=== PATIENT | male | born 1940 | race Caucasian/White ===

== ENCOUNTER 2016-08-20 10:10 | Outpatient (CLI) | payer MEDICARE, OTHER ==
--- NOTE | 2016-08-20 11:49 | Diagnostic Imaging Report ---
[facility] [address] [facility].[address] [address] Report Submission Date: Aug 20, 2016 11:45:10 AM CDT Patient Study Name: RICHY MURILLO Date: Aug 20, 2016 10:34:47 AM CDT Modality Type: MR Gender: M Description: MRI L SPINE W/O CONTRAST : 44 Institution: [facility] Physician: KING ENAMORADO MRI lumbar spine without contrast Clinical history: Severe low back pain Technique: Multiplanar multisequence MR imaging was performed through the lumbar spine. Findings: There is a Tt1 and compression fracture retropulsion. There is mild loss of vertebral body height. There is bone marrow edema throughout the vertebral body compatible acute/subacute compression fracture. No other compression fractures identified. Alignment of the lumbar spine is normal. There is heterogeneous marrow signal without a geographic marrow lesion. The conus medullaris terminates at L1 and is unremarkable. T2-L1: There is no significant disc bulge, central spinal or neural foraminal stenosis. L1-L2: There is a mild disc bulge without central spinal or neural foraminal stenosis. L2-L3: There is a mild disc bulge without central spinal or neural foraminal stenosis. L3-L4: There is a mild disc bulge without central spinal or neural foraminal stenosis. L4-L5: There is a mild disc bulge without central spinal or neural foraminal stenosis. L5-S1: There is no significant disc bulge, central spinal or neural foraminal stenosis. Impression: 1. Acute/subacute T11 compression fracture 2. Mild lumbar spondylosis. Electronically signed on Aug 20, 2016 11:45:10 AM CDT by: Leonid ANGELES
== END 2016-08-20 10:20 | disposition home or self-care (01) ==
LOC: RAD 10:10
PROVIDERS: ATTEND Nurse Practitioner Family
DX: M54.9 Dorsalgia, unspecified (principal)
CPT/HCPCS: 72148

== ENCOUNTER 2018-11-22 14:35 | Inpatient (IN) | payer MEDICARE, OTHER ==
[2018-11-22 15:52] VITALS: BMI 19.3
[2018-11-22] MEDS ORDERED: FLU VACC TS2019-20(65YR UP)/PF 180 MCG/0.5 ML SYRINGE IM ONE (17:10)
[2018-11-22] MEDS ORDERED: BISACODYL 10 MG SUPP.RECT RC PRN (17:11)
[2018-11-22] MEDS ORDERED: ALBUTEROL SULFATE 2.5 MG/3 ML AMPUL.NEB NEB PRN (17:11)
--- NOTE | 2018-11-22 17:27 | History and Physical Report ---
History of Present Illnes - History of Present Illness Reason for Visit: gait disturbance following ORIF of L acetabular, L sacral fx, right hematom History of Present Illness: 78yo white male with a history of HTN, PVD, COPD, chronic anemia and CLL who developed some abd pain. On further observation patient was found to have a grade 2 splenic laceration, left acetabular fracture, and left sacraliliac joint fracture. Patient and his denies any trauma that they are aware of that may have precipitated/ caused his injuries. Patient subsequently underwent ORIF of the acetabular fracture. No spleen repair or repair to left sacraliliac joint. Patient was found to have a pelvic hematoma that remained stable and was not evacuated. Patient has been placed on nonweight bearing to the left leg for 4- 6weeks. Patient did have some increase blood pressure which was treated with his home medication. He was also started on clonidine. He did have some postop delirium which has cleared at this time. Patient was transferred to this institution for PT and OT to help with transferring. Patient states that his pain has been well controlled. He has had some diarrhea. Appetite has been fair. 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 - Past Surgical History Past Surgical History: Total Hip Replacement (left) - Past Family History Mother Family History: Hypertension, (94yo) Father Family History: CAD, DM, (68yo) - Past Social History Smoke: Quit (2017) Occupation: sercurity work Alcohol: None Drugs: None Lives: With Family Domestic Violence: Negative - Health Maintenance Health Maintenance: denies: Tetanus Influenza Vaccine: No Pneumonia Vaccine: No Resuscitation Status: Resusciation Status Resuscitation Status Do Not Resuscitate Review of Systems - Review of Systems Constitutional: negative: Fever, Chills, Sweats Eyes: negative: pain, conjunctivae inflammation ENT: negative: Ear Pain, Ear Discharge, Nose Pain, Nose Discharge, Nose Congestion, Mouth Pain Respiratory: negative: Cough, Dry, Shortness of Breath, Hemoptysis Cardiovascular: negative: Chest Pain, Palpitations Gastrointestinal: negative: Nausea, Vomiting, Abdominal Pain Genitourinary: negative: Dysuria Musculoskeletal: Shoulder Pain, Leg Pain. negative: Neck Pain Skin: negative: Rash, Lesions Neurological: Weakness. negative: Numbness, Incoordination, Change in Speech, Confusion - Medications/Allergies Allergies/Adverse Reactions: Allergies Allergy/AdvReac Type Severity Reaction Status Date / Time Penicillins Allergy Unknown Rash Verified 11/22/18 15:52 cephalexin [From Keflex] AdvReac Rash Verified 11/22/18 15:52 Home Medications: Home Medications Acetaminophen [Pain Relief Extra Strength] 1,000 mg PO BID 11/22/18 Albuterol Sulfate [Ventolin HFN] 2.5 mg NEB Q6 PRN 11/22/18 Albuterol Sulfate [Ventolin HFN] 3 ml INH Q12 11/22/18 Bisacodyl 10 mg RC PRN PRN 11/22/18 Budesonide 0.5 mg IH Q12 11/22/18 Calcium Carbonate/Vitamin D3 [Calcium 600-Vit D3 400 Tablet] 1 each PO BID Clonidine 1 each TD WEEK 11/22/18 Ergocalciferol (Vitamin D2) [Vitamin D-2] 50,000 unit PO WEEK 11/22/18 Formoterol Fumarate [Perforomist] 20 mcg IH Q12 11/22/18 Multivitamin [One-Daily Multi-Vitamin] 1 each PO DAILY 11/22/18 Quinapril HCl 40 mg PO DAILY 11/22/18 Rosuvastatin Calcium 40 mg PO HS 11/22/18 Sennosides/Docusate Sodium [Docusate Sodium-Senna Tablet] 1 each PO BID 11/22/18 Tamsulosin HCl 0.4 mg PO DAILY 11/22/18 Current Inpatient Medications: Current Inpatient Medications Acetaminophen (Tylenol Extra Strength) 1,000 mg PO BID ANN Stop: 12/22/18 20:59 Albuterol Sulfate (Ventolin Soln) 2.5 mg NEB Q12 ANN Stop: 12/22/18 20:59 Albuterol Sulfate (Ventolin Soln) 2.5 mg NEB Q6 PRN PRN Reason: Wheezing Stop: 12/22/18 17:10 Atorvastatin Calcium (Lipitor) 40 mg PO HS ANN Stop: 12/22/18 20:59 Bisacodyl (Dulcolax) 10 mg RC PRN PRN PRN Reason: Constipation Stop: 12/22/18 17:10 Budesonide (Pulmicort) 0.5 mg NEB Q12 ANN Stop: 12/22/18 20:59 Calcium/Vitamin D (Oscal + D 500mg/200unit) 1 each PO DAILY ANN Stop: 12/23/18 08:59 Clonidine HCl (Catapress) 0.2 mg PO BID ANN Stop: 12/22/18 20:59 Enoxaparin Sodium (Lovenox) 30 mg SQ DAILY ANN Stop: 12/07/18 08:59 Ergocalciferol (Vitamin D2) 50,000 unit PO WEEK ANN Stop: 12/29/18 08:59 Finasteride (Proscar) 5 mg PO DAILY ANN Stop: 12/23/18 08:59 Lisinopril (Prinivil) 40 mg PO DAILY ANN Stop: 12/23/18 08:59 Mirabegron (Myrbetriq (Nf)) 50 mg PO DAILY ANN Stop: 12/23/18 08:59 Multivitamins (Tab-A-Winsome) 1 each PO DAILY ANN Stop: 12/23/18 08:59 Paroxetine HCl (Paxil) 40 mg PO DAILY ANN Stop: 12/23/18 08:59 Senna/Docusate Sodium (Senna Plus Tablet) 1 each PO BID ANN Stop: 12/22/18 20:59 Tamsulosin HCl (Flomax) 0.4 mg PO DAILY ANN Stop: 12/23/18 08:59 Exam - Exam Vital Signs: Vital Signs (72 hours) 11/22/18 11/22/18 11/22/18 14:35 15:40 15:49 Temperature 97.5 F L 97.5 F L 97.5 F L Pulse Rate [ 65 62 62 Left Pulse ox] Respiratory 20 20 20 Rate Blood Pressure 157/83 157/83 157/83 [Left Arm] O2 Sat by Pulse 97 97 97 Oximetry General: Alert, Oriented to Person, Oriented to Place, Oriented to Time, Cooperative, Thin HEENT: Atraumatic, PERRLA, EOMI, Mouth Mucous membr. moist/[place], Nose Mucous membr. moist/[place] Neck: Normal Range of Motion Lungs: Clear to auscultation, Normal air movement, Speaks full Sentences Cardiovascular: Regular rate, Normal S1, Normal S2, No murmurs Abdomen: Normal bowel sounds, Soft, No tenderness, No hepatospenomegaly, No masses Integumentary: Normal, [place], Warm, Dry Extremities: No clubbing, No cyanosis, No edema Neurological: Normal speech, Strength Equal Bilat, Normal tone, Generalized Weakness Psych/Mental Status: Mental status NL, Intact Judgment. No: Mood NL (depressed) Assessment/Plan - Assessment/Plan (1) Acetabular fracture Status: Acute Qualifiers: Fracture type: closed Fracture alignment: displaced Fracture healing: with delayed healing (2) COPD (chronic obstructive pulmonary disease) Status: Acute (3) Essential hypertension Status: Acute (4) CLL (chronic lymphocytic leukemia) Status: Acute (5) PVD (peripheral vascular disease) Status: Acute VTE Assessment - RISK FACTOR SCORE VTE RISK FACTOR SCORES: AGE OVER 60 YEARS, ANTICIPATED BED CONFINEMENT OR IMMOBILIZATION > 24 HOURS - RISK VTE MODERATE RISK: SCORE OF 2 (RISK PROXIMAL DVT 2-4%) PROPHYAXIS NEEDED
[2018-11-22] MEDS: cloNIDine HCL 0.1 MG TABLET PO SCH (20:55)
[2018-11-22] MEDS: ATORVASTATIN CALCIUM 20 MG TABLET PO SCH (20:56)
[2018-11-22] MEDS: SENNOSIDES/DOCUSATE 8.6/50 MG 1 EACH TABLET PO SCH (20:56)
[2018-11-22] MEDS: ACETAMINOPHEN 500 MG TABLET PO SCH (20:56)
[2018-11-22] MEDS: BUDESONIDE 0.5MG/2ML AMPUL.NEB NEB SCH (21:01)
[2018-11-22] MEDS: ALBUTEROL SULFATE 2.5 MG/3 ML AMPUL.NEB NEB SCH (21:08)
[2018-11-23] MEDS: MIRABEGRON 25 MG PO SCH (09:11)
[2018-11-23] MEDS: ENOXAPARIN SODIUM 30 MG/0.3 ML DISP.SYRIN SQ SCH (09:11)
[2018-11-23] MEDS: TAMSULOSIN HCL 0.4 MG CAP.ER.24H PO SCH (09:12)
[2018-11-23] MEDS: MULTIVITAMIN 1 EACH TABLET PO SCH (09:12)
[2018-11-23] MEDS: PARoxetine HCL 10 MG TABLET PO SCH (09:12)
[2018-11-23] MEDS: FINASTERIDE 5 MG TABLET PO SCH (09:12)
[2018-11-23] MEDS: SENNOSIDES/DOCUSATE 8.6/50 MG 1 EACH TABLET PO SCH ×2 (09:12→20:42)
[2018-11-23] MEDS: CALCIUM/VIT D 500MG/200 UNIT TABLET PO SCH (09:12)
[2018-11-23] MEDS: ACETAMINOPHEN 500 MG TABLET PO SCH ×2 (09:12→20:43)
[2018-11-23] MEDS: cloNIDine HCL 0.1 MG TABLET PO SCH ×2 (09:12→20:42)
[2018-11-23] MEDS: LISINOPRIL 10 MG TABLET PO SCH (09:14)
[2018-11-23] MEDS: ALBUTEROL SULFATE 2.5 MG/3 ML AMPUL.NEB NEB SCH ×2 (09:30→20:58)
[2018-11-23] MEDS: BUDESONIDE 0.5MG/2ML AMPUL.NEB NEB SCH ×2 (09:35→21:01)
[2018-11-23] MEDS: ATORVASTATIN CALCIUM 20 MG TABLET PO SCH (20:43)
[2018-11-24] MEDS ORDERED: LISINOPRIL 20 MG TABLET PO ONE (08:12)
[2018-11-24] MEDS: PARoxetine HCL 10 MG TABLET PO SCH (08:49)
[2018-11-24] MEDS: MULTIVITAMIN 1 EACH TABLET PO SCH (08:49)
[2018-11-24] MEDS: ACETAMINOPHEN 500 MG TABLET PO SCH ×2 (08:50→20:36)
[2018-11-24] MEDS: TAMSULOSIN HCL 0.4 MG CAP.ER.24H PO SCH (08:50)
[2018-11-24] MEDS: cloNIDine HCL 0.1 MG TABLET PO SCH ×2 (08:51→20:36)
[2018-11-24] MEDS: FINASTERIDE 5 MG TABLET PO SCH (08:51)
[2018-11-24] MEDS: CALCIUM/VIT D 500MG/200 UNIT TABLET PO SCH (08:51)
[2018-11-24] MEDS: MIRABEGRON 25 MG PO SCH (08:51)
[2018-11-24] MEDS: SENNOSIDES/DOCUSATE 8.6/50 MG 1 EACH TABLET PO SCH ×2 (08:52→20:36)
[2018-11-24] MEDS: ENOXAPARIN SODIUM 30 MG/0.3 ML DISP.SYRIN SQ SCH (08:52)
[2018-11-24] MEDS: ALBUTEROL SULFATE 2.5 MG/3 ML AMPUL.NEB NEB SCH ×2 (08:55→20:34)
[2018-11-24] MEDS: BUDESONIDE 0.5MG/2ML AMPUL.NEB NEB SCH ×2 (09:16→20:30)
[2018-11-24] MEDS: LISINOPRIL 10 MG TABLET PO SCH (09:23)
[2018-11-24] MEDS: ATORVASTATIN CALCIUM 20 MG TABLET PO SCH (20:36)
[2018-11-25 06:39] LABS: eGFR (Non-African) > 60
[2018-11-25 07:16] LABS: BASOPHILS % 0.4 % (0.0-1.5); NEUTROPHILS # 5.8 # k/uL (1.4-7.7)
[2018-11-25 07:17] LABS: BASOPHILS % 1 % (0-2); HYPOCHROMASIA 1+ (NEGATIVE); SEGMENTED NEUTROPHILS % 49 % (39-79); SMUDGE CELLS 46 #PER 100 (0-0)
[2018-11-25 07:18] LABS: OVALOCYTES 1+ (NEGATIVE)
[2018-11-25] MEDS: PARoxetine HCL 10 MG TABLET PO SCH (08:46)
[2018-11-25] MEDS: CALCIUM/VIT D 500MG/200 UNIT TABLET PO SCH (08:46)
[2018-11-25] MEDS: TAMSULOSIN HCL 0.4 MG CAP.ER.24H PO SCH (08:46)
[2018-11-25] MEDS: ENOXAPARIN SODIUM 30 MG/0.3 ML DISP.SYRIN SQ SCH (08:46)
[2018-11-25] MEDS: MULTIVITAMIN 1 EACH TABLET PO SCH (08:46)
[2018-11-25] MEDS: MIRABEGRON 25 MG PO SCH (08:47)
[2018-11-25] MEDS: ACETAMINOPHEN 500 MG TABLET PO SCH ×2 (08:47→21:27)
[2018-11-25] MEDS: cloNIDine HCL 0.1 MG TABLET PO SCH ×2 (08:47→21:27)
[2018-11-25] MEDS: FINASTERIDE 5 MG TABLET PO SCH (08:47)
[2018-11-25] MEDS: SENNOSIDES/DOCUSATE 8.6/50 MG 1 EACH TABLET PO SCH ×2 (08:47→21:28)
[2018-11-25] MEDS: LISINOPRIL 20 MG TABLET PO SCH (08:47)
[2018-11-25] MEDS: ALBUTEROL SULFATE 2.5 MG/3 ML AMPUL.NEB NEB SCH ×2 (09:40→22:50)
[2018-11-25] MEDS: BUDESONIDE 0.5MG/2ML AMPUL.NEB NEB SCH ×2 (09:40→22:49)
[2018-11-25] MEDS: ATORVASTATIN CALCIUM 20 MG TABLET PO SCH (21:27)
[2018-11-26] MEDS: BUDESONIDE 0.5MG/2ML AMPUL.NEB NEB SCH ×2 (08:50→20:45)
[2018-11-26] MEDS: ALBUTEROL SULFATE 2.5 MG/3 ML AMPUL.NEB NEB SCH ×2 (08:55→20:50)
[2018-11-26] MEDS: TAMSULOSIN HCL 0.4 MG CAP.ER.24H PO SCH (09:14)
[2018-11-26] MEDS: FINASTERIDE 5 MG TABLET PO SCH (09:14)
[2018-11-26] MEDS: ENOXAPARIN SODIUM 30 MG/0.3 ML DISP.SYRIN SQ SCH (09:14)
[2018-11-26] MEDS: cloNIDine HCL 0.1 MG TABLET PO SCH ×2 (09:14→20:39)
[2018-11-26] MEDS: LISINOPRIL 20 MG TABLET PO SCH (09:14)
[2018-11-26] MEDS: MIRABEGRON 25 MG PO SCH (09:14)
[2018-11-26] MEDS: PARoxetine HCL 10 MG TABLET PO SCH (09:14)
[2018-11-26] MEDS: MULTIVITAMIN 1 EACH TABLET PO SCH (09:14)
[2018-11-26] MEDS: CALCIUM/VIT D 500MG/200 UNIT TABLET PO SCH (09:14)
[2018-11-26] MEDS: ACETAMINOPHEN 500 MG TABLET PO SCH ×2 (09:15→20:39)
[2018-11-26] MEDS: SENNOSIDES/DOCUSATE 8.6/50 MG 1 EACH TABLET PO SCH ×2 (09:17→20:40)
[2018-11-26] MEDS: ATORVASTATIN CALCIUM 20 MG TABLET PO SCH (20:39)
[2018-11-27] MEDS: PARoxetine HCL 10 MG TABLET PO SCH (08:55)
[2018-11-27] MEDS: ACETAMINOPHEN 500 MG TABLET PO SCH ×2 (08:55→21:29)
[2018-11-27] MEDS: ENOXAPARIN SODIUM 30 MG/0.3 ML DISP.SYRIN SQ SCH (08:55)
[2018-11-27] MEDS: SENNOSIDES/DOCUSATE 8.6/50 MG 1 EACH TABLET PO SCH ×2 (08:56→21:29)
[2018-11-27] MEDS: TAMSULOSIN HCL 0.4 MG CAP.ER.24H PO SCH (08:56)
[2018-11-27] MEDS: MULTIVITAMIN 1 EACH TABLET PO SCH (08:56)
[2018-11-27] MEDS: MIRABEGRON 25 MG PO SCH (08:56)
[2018-11-27] MEDS: FINASTERIDE 5 MG TABLET PO SCH (08:56)
[2018-11-27] MEDS: cloNIDine HCL 0.1 MG TABLET PO SCH ×2 (08:56→21:29)
[2018-11-27] MEDS: LISINOPRIL 20 MG TABLET PO SCH (08:56)
[2018-11-27] MEDS: CALCIUM/VIT D 500MG/200 UNIT TABLET PO SCH (08:56)
[2018-11-27] MEDS: ALBUTEROL SULFATE 2.5 MG/3 ML AMPUL.NEB NEB SCH ×2 (09:00→21:36)
[2018-11-27] MEDS: BUDESONIDE 0.5MG/2ML AMPUL.NEB NEB SCH ×2 (09:00→21:34)
[2018-11-27] MEDS: ATORVASTATIN CALCIUM 20 MG TABLET PO SCH (21:29)
[2018-11-28] MEDS: FINASTERIDE 5 MG TABLET PO SCH (09:05)
[2018-11-28] MEDS: PARoxetine HCL 10 MG TABLET PO SCH (09:05)
[2018-11-28] MEDS: LISINOPRIL 20 MG TABLET PO SCH (09:05)
[2018-11-28] MEDS: ACETAMINOPHEN 500 MG TABLET PO SCH ×2 (09:06→20:34)
[2018-11-28] MEDS: ENOXAPARIN SODIUM 30 MG/0.3 ML DISP.SYRIN SQ SCH (09:06)
[2018-11-28] MEDS: SENNOSIDES/DOCUSATE 8.6/50 MG 1 EACH TABLET PO SCH ×2 (09:06→20:34)
[2018-11-28] MEDS: CALCIUM/VIT D 500MG/200 UNIT TABLET PO SCH (09:06)
[2018-11-28] MEDS: TAMSULOSIN HCL 0.4 MG CAP.ER.24H PO SCH (09:06)
[2018-11-28] MEDS: MULTIVITAMIN 1 EACH TABLET PO SCH (09:06)
[2018-11-28] MEDS: cloNIDine HCL 0.1 MG TABLET PO SCH ×2 (09:06→20:34)
[2018-11-28] MEDS: MIRABEGRON 25 MG PO SCH (09:06)
[2018-11-28] MEDS: ALBUTEROL SULFATE 2.5 MG/3 ML AMPUL.NEB NEB SCH ×2 (10:01→20:34)
[2018-11-28] MEDS: BUDESONIDE 0.5MG/2ML AMPUL.NEB NEB SCH ×2 (10:07→20:41)
[2018-11-28] MEDS: ATORVASTATIN CALCIUM 20 MG TABLET PO SCH (20:34)
[2018-11-29] MEDS: ENOXAPARIN SODIUM 30 MG/0.3 ML DISP.SYRIN SQ SCH (08:54)
[2018-11-29] MEDS: cloNIDine HCL 0.1 MG TABLET PO SCH ×2 (08:54→20:09)
[2018-11-29] MEDS: CALCIUM/VIT D 500MG/200 UNIT TABLET PO SCH (08:54)
[2018-11-29] MEDS: LISINOPRIL 20 MG TABLET PO SCH (08:54)
[2018-11-29] MEDS: ACETAMINOPHEN 500 MG TABLET PO SCH ×2 (08:54→20:09)
[2018-11-29] MEDS: TAMSULOSIN HCL 0.4 MG CAP.ER.24H PO SCH (08:54)
[2018-11-29] MEDS: SENNOSIDES/DOCUSATE 8.6/50 MG 1 EACH TABLET PO SCH ×2 (08:54→20:09)
[2018-11-29] MEDS: MIRABEGRON 25 MG PO SCH (08:54)
[2018-11-29] MEDS: FINASTERIDE 5 MG TABLET PO SCH (08:55)
[2018-11-29] MEDS: PARoxetine HCL 10 MG TABLET PO SCH (08:55)
[2018-11-29] MEDS: MULTIVITAMIN 1 EACH TABLET PO SCH (08:55)
[2018-11-29] MEDS: ERGOCALCIFEROL (VITAMIN D2) 50,000 UNIT CAPSULE PO SCH (08:57)
[2018-11-29] MEDS: BUDESONIDE 0.5MG/2ML AMPUL.NEB NEB SCH ×2 (10:11→22:16)
[2018-11-29] MEDS: ALBUTEROL SULFATE 2.5 MG/3 ML AMPUL.NEB NEB SCH ×2 (10:14→22:16)
[2018-11-29] MEDS: ATORVASTATIN CALCIUM 20 MG TABLET PO SCH (20:09)
[2018-11-30] MEDS: ALBUTEROL SULFATE 2.5 MG/3 ML AMPUL.NEB NEB SCH ×2 (09:00→20:54)
[2018-11-30] MEDS: BUDESONIDE 0.5MG/2ML AMPUL.NEB NEB SCH ×2 (09:00→20:49)
[2018-11-30] MEDS: SENNOSIDES/DOCUSATE 8.6/50 MG 1 EACH TABLET PO SCH ×2 (09:03→20:54)
[2018-11-30] MEDS: TAMSULOSIN HCL 0.4 MG CAP.ER.24H PO SCH (09:03)
[2018-11-30] MEDS: FINASTERIDE 5 MG TABLET PO SCH (09:03)
[2018-11-30] MEDS: PARoxetine HCL 10 MG TABLET PO SCH (09:03)
[2018-11-30] MEDS: ACETAMINOPHEN 500 MG TABLET PO SCH ×2 (09:03→20:54)
[2018-11-30] MEDS: LISINOPRIL 20 MG TABLET PO SCH (09:03)
[2018-11-30] MEDS: CALCIUM/VIT D 500MG/200 UNIT TABLET PO SCH (09:03)
[2018-11-30] MEDS: ENOXAPARIN SODIUM 30 MG/0.3 ML DISP.SYRIN SQ SCH (09:03)
[2018-11-30] MEDS: MIRABEGRON 25 MG PO SCH (09:03)
[2018-11-30] MEDS: cloNIDine HCL 0.1 MG TABLET PO SCH ×2 (09:03→20:53)
[2018-11-30] MEDS: MULTIVITAMIN 1 EACH TABLET PO SCH (09:03)
[2018-11-30] MEDS: ATORVASTATIN CALCIUM 20 MG TABLET PO SCH (20:54)
[2018-12-01] MEDS: BUDESONIDE 0.5MG/2ML AMPUL.NEB NEB SCH ×2 (09:00→20:33)
[2018-12-01] MEDS: TAMSULOSIN HCL 0.4 MG CAP.ER.24H PO SCH (09:19)
[2018-12-01] MEDS: MIRABEGRON 25 MG PO SCH (09:19)
[2018-12-01] MEDS: SENNOSIDES/DOCUSATE 8.6/50 MG 1 EACH TABLET PO SCH ×2 (09:19→20:32)
[2018-12-01] MEDS: ENOXAPARIN SODIUM 30 MG/0.3 ML DISP.SYRIN SQ SCH (09:19)
[2018-12-01] MEDS: cloNIDine HCL 0.1 MG TABLET PO SCH ×2 (09:19→20:32)
[2018-12-01] MEDS: MULTIVITAMIN 1 EACH TABLET PO SCH (09:20)
[2018-12-01] MEDS: FINASTERIDE 5 MG TABLET PO SCH (09:20)
[2018-12-01] MEDS: PARoxetine HCL 10 MG TABLET PO SCH (09:20)
[2018-12-01] MEDS: LISINOPRIL 20 MG TABLET PO SCH (09:20)
[2018-12-01] MEDS: CALCIUM/VIT D 500MG/200 UNIT TABLET PO SCH (09:20)
[2018-12-01] MEDS: ACETAMINOPHEN 500 MG TABLET PO SCH ×2 (09:21→20:32)
[2018-12-01] MEDS ORDERED: IPRATROPIUM/ALBUTEROL SULFATE 3 ML AMPUL.NEB NEB ONE (13:35)
[2018-12-01] MEDS: ALBUTEROL SULFATE 2.5 MG/3 ML AMPUL.NEB NEB SCH ×2 (16:51→20:44)
[2018-12-01] MEDS: ATORVASTATIN CALCIUM 20 MG TABLET PO SCH (20:31)
[2018-12-02] MEDS: BUDESONIDE 0.5MG/2ML AMPUL.NEB NEB SCH ×2 (08:50→20:47)
[2018-12-02] MEDS: ALBUTEROL SULFATE 2.5 MG/3 ML AMPUL.NEB NEB SCH ×2 (09:00→20:49)
[2018-12-02] MEDS: SENNOSIDES/DOCUSATE 8.6/50 MG 1 EACH TABLET PO SCH ×2 (10:05→20:40)
[2018-12-02] MEDS: cloNIDine HCL 0.1 MG TABLET PO SCH ×2 (10:05→20:40)
[2018-12-02] MEDS: PARoxetine HCL 10 MG TABLET PO SCH (10:05)
[2018-12-02] MEDS: FINASTERIDE 5 MG TABLET PO SCH (10:05)
[2018-12-02] MEDS: MULTIVITAMIN 1 EACH TABLET PO SCH (10:05)
[2018-12-02] MEDS: ENOXAPARIN SODIUM 30 MG/0.3 ML DISP.SYRIN SQ SCH (10:05)
[2018-12-02] MEDS: LISINOPRIL 20 MG TABLET PO SCH (10:05)
[2018-12-02] MEDS: ACETAMINOPHEN 500 MG TABLET PO SCH ×2 (10:06→20:40)
[2018-12-02] MEDS: TAMSULOSIN HCL 0.4 MG CAP.ER.24H PO SCH (10:06)
[2018-12-02] MEDS: CALCIUM/VIT D 500MG/200 UNIT TABLET PO SCH (10:06)
[2018-12-02] MEDS: MIRABEGRON 25 MG PO SCH (10:06)
--- NOTE | 2018-12-02 19:08 | Inpatient Progress Note ---
Subjective - Required Recertification Statement I anticipate X number of days because-include discharge plan: 7 days - Review of Systems Events since last encounter: Patient does seem to be making some progress with his physical and occupational therapy. Although patient is still limited by his weight-bearing status. Appetite has been stable. Patient has had some periods of agitation I believe secondary to frustration. Patient other chronic medical problems appear to be stable at this time. Objective - Exam Vitals and I&O: Vital Signs Temp 98.7 F 12/02/18 09:00 Pulse 103 H 12/02/18 09:00 Resp 20 12/02/18 09:00 BP 155/94 12/02/18 09:00 Pulse Ox 92 12/02/18 09:00 Intake & Output 12/01/18 12/02/18 12/02/18 23:59 11:59 23:59 Intake Total 840 840 360 Output Total 1 Balance 840 840 359 Intake: Oral 840 840 360 Output: Urine 1 Other: Voiding Method Bedside Commode Incontinent # Voids 3 2 # Bowel Movements 1 0 General: Alert, Oriented to Person, Oriented to Place, Oriented to Time Neck: Supple Lungs: Clear to auscultation, Normal air movement, Speaks full Sentences Cardiovascular: Regular rate, Normal S1, Normal S2 Extremities: No clubbing, No cyanosis Skin: Normal, [place], Warm, Dry Neurological: Normal speech, Strength Equal Bilat, Normal tone Psych/Mental Status: Mental status NL, Mood NL, Appropriate Affect, Intact Judgment - Results Results: Laboratory Results WBC 12.40 K/ul (4.00-12.00) H 11/25/18 05:30 RBC 2.63 M/ul (3.90-5.20) L 11/25/18 05:30 Hgb 7.9 g/dL (12.0-18.0) L 11/25/18 05:30 Hct 23.1 % (37.0-53.0) L 11/25/18 05:30 MCV 88.0 fl (80.0-100.0) 11/25/18 05:30 MCH 30.1 pg (28.0-34.0) 11/25/18 05:30 MCHC 34.3 g/dL (30.0-36.0) 11/25/18 05:30 RDW 13.7 % (11.3-14.3) 11/25/18 05:30 Plt Count 325 K/mm3 (130-400) 11/25/18 05:30 Neut % (Auto) 46.4 % (39.0-79.0) 11/25/18 05:30 Lymph % (Auto) 45.0 % (16.0-50.0) 11/25/18 05:30 [place] % (Auto) 5.9 % (0.0-11.0) 11/25/18 05:30 Eos % (Auto) 2.3 % (0.0-6.8) 11/25/18 05:30 Baso % (Auto) 0.4 % (0.0-1.5) 11/25/18 05:30 Neut # (Auto) 5.8 # k/uL (1.4-7.7) 11/25/18 05:30 Lymph # (Auto) 5.6 # k/uL (0.6-4.0) H 11/25/18 05:30 [place] # (Auto) 0.7 # k/uL (0.0-0.9) 11/25/18 05:30 Eos # (Auto) 0.3 # k/uL (0.0-0.6) 11/25/18 05:30 Baso # (Auto) 0.1 # k/uL (0.0-0.5) 11/25/18 05:30 Seg Neutrophils % 49 % (39-79) 11/25/18 05:30 Band Neutrophils % 1 % (0-12) 11/25/18 05:30 Lymphocytes % 39 % (16-50) 11/25/18 05:30 Monocytes % 6 % (0-11) 11/25/18 05:30 Eosinophils % 3 % (0-7) 11/25/18 05:30 Basophils % 1 % (0-2) 11/25/18 05:30 Smudge Cells 46 #PER 100 (0-0) H 11/25/18 05:30 Plt Morphology Comment Normal (NORMAL) 11/25/18 05:30 Hypochromasia 1+ (NEGATIVE) H 11/25/18 05:30 Ovalocytes 1+ (NEGATIVE) H 11/25/18 05:30 RBC Morph Comment Abnormal (NORMAL) H 11/25/18 05:30 Sodium 135 mmol/L (137-145) L 11/25/18 05:30 Potassium 3.7 mmol/L (3.5-5.1) 11/25/18 05:30 Chloride 97 mmol/L (98-107) L 11/25/18 05:30 Carbon Dioxide 36 mmol/L (22-30) H 11/25/18 05:30 Anion Gap 5.7 11/25/18 05:30 BUN 15 mg/dL (9-20) 11/25/18 05:30 Creatinine 0.46 mg/dL (0.66-1.25) L 11/25/18 05:30 Estimated Creat Clear 131 11/25/18 05:30 Est GFR ( Amer) > 60 (60-) 11/25/18 05:30 Est GFR (Non-Af Amer) > 60 (60-) 11/25/18 05:30 Glucose 97 mg/dL (74-106) 11/25/18 05:30 Calcium 8.2 mg/dL (8.4-10.2) L 11/25/18 05:30 Total Bilirubin 0.8 mg/dL (0.2-1.3) 11/25/18 05:30 AST 37 U/L (15-46) 11/25/18 05:30 ALT 20 U/L (0-50) 11/25/18 05:30 Alkaline Phosphatase 160 U/L (38-126) H 11/25/18 05:30 Total Protein 5.4 g/dL (6.3-8.2) L 11/25/18 05:30 Albumin 2.8 g/dL (3.5-5.0) L 11/25/18 05:30 Assessment/Plan - Assessment/Plan (1) Acetabular fracture Status: Acute Qualifiers: Fracture type: closed Fracture alignment: displaced Fracture healing: with delayed healing Assessment: Stable (2) COPD (chronic obstructive pulmonary disease) Status: Chronic Assessment: Stable (3) Essential hypertension Status: Chronic Plan: Stable
[2018-12-02] MEDS: traMADol HCL 50 MG TABLET PO PRN (19:27)
[2018-12-02] MEDS: ATORVASTATIN CALCIUM 20 MG TABLET PO SCH (20:40)
[2018-12-03] MEDS: traMADol HCL 50 MG TABLET PO PRN ×2 (02:37→18:46)
[2018-12-03] MEDS: ALBUTEROL SULFATE 2.5 MG/3 ML AMPUL.NEB NEB SCH ×2 (08:50→21:01)
[2018-12-03] MEDS: BUDESONIDE 0.5MG/2ML AMPUL.NEB NEB SCH ×2 (08:55→21:04)
[2018-12-03] MEDS: ENOXAPARIN SODIUM 30 MG/0.3 ML DISP.SYRIN SQ SCH (09:03)
[2018-12-03] MEDS: FINASTERIDE 5 MG TABLET PO SCH (09:03)
[2018-12-03] MEDS: MIRABEGRON 25 MG PO SCH (09:03)
[2018-12-03] MEDS: SENNOSIDES/DOCUSATE 8.6/50 MG 1 EACH TABLET PO SCH ×2 (09:04→20:57)
[2018-12-03] MEDS: ACETAMINOPHEN 500 MG TABLET PO SCH ×2 (09:04→20:58)
[2018-12-03] MEDS: CALCIUM/VIT D 500MG/200 UNIT TABLET PO SCH (09:04)
[2018-12-03] MEDS: PARoxetine HCL 10 MG TABLET PO SCH (09:04)
[2018-12-03] MEDS: cloNIDine HCL 0.1 MG TABLET PO SCH ×2 (09:04→20:57)
[2018-12-03] MEDS: TAMSULOSIN HCL 0.4 MG CAP.ER.24H PO SCH (09:04)
[2018-12-03] MEDS: LISINOPRIL 20 MG TABLET PO SCH (09:04)
[2018-12-03] MEDS: MULTIVITAMIN 1 EACH TABLET PO SCH (09:04)
--- NOTE | 2018-12-03 13:44 | Diagnostic Imaging Report ---
[facility] [address] [facility] [address] Patient Name: RICHY MURILLO Referring Physician: Richard Gonzalez Date of : 1940 Radiologist: Gender: M Date of Service: 12/02/2018 Exam Requested: ABDOMEN 1VIEW ABDOMEN 1 VIEW HISTORY: LEFT FLANK PAIN. FINDINGS: Supine abdomen images demonstrates a large amount of contrast in the rectum and left colon with extensive diverticulosis identified. The bowel pattern is otherwise unremarkable. Postoperative fixation of right iliac wing and acetabular fractures with extensive metallic hardware in place. Screw fixation across the left SI joint is seen. Bipolar hip prosthesis on the left is identified. Clips in the right upper quadrant from previous cholecystectomy are seen. Kyphoplasty in the T11 vertebral body is present. IMPRESSION: Contrast in the colon with extensive diverticulosis. No acute process seen. HIK
--- NOTE | 2018-12-03 13:45 | Diagnostic Imaging Report ---
[facility] [address] [facility] [address] Patient Name: RICHY MURILLO Referring Physician: Richard Gonzalez Date of : 1940 Radiologist: Gender: M Date of Service: 12/02/2018 Exam Requested: CHEST 1VIEW CHEST XRAY HISTORY: LEFT FLANK PAIN. FINDINGS: Erect AP portable chest x-ray dated December 02, 2018 at 1915 demonstrates lungs to be clear of focal infiltrates and expanded bilaterally. Mild scarring is seen. Cardiac silhouette is normal in size and contour with a calcified ectatic aorta with calcification of the descending thoracic aorta. Kyphoplasty changes of the lower thoracic vertebral bodies are seen without acute bony abnormality identified. IMPRESSION: No active intrathoracic disease seen. [facility]
[2018-12-03] MEDS: ATORVASTATIN CALCIUM 20 MG TABLET PO SCH (20:57)
[2018-12-04] MEDS: cloNIDine HCL 0.1 MG TABLET PO SCH ×2 (08:59→20:41)
[2018-12-04] MEDS: TAMSULOSIN HCL 0.4 MG CAP.ER.24H PO SCH (08:59)
[2018-12-04] MEDS: LISINOPRIL 20 MG TABLET PO SCH (08:59)
[2018-12-04] MEDS: FINASTERIDE 5 MG TABLET PO SCH (08:59)
[2018-12-04] MEDS: PARoxetine HCL 10 MG TABLET PO SCH (08:59)
[2018-12-04] MEDS: MULTIVITAMIN 1 EACH TABLET PO SCH (08:59)
[2018-12-04] MEDS: MIRABEGRON 25 MG PO SCH (08:59)
[2018-12-04] MEDS: SENNOSIDES/DOCUSATE 8.6/50 MG 1 EACH TABLET PO SCH ×2 (08:59→20:42)
[2018-12-04] MEDS: CALCIUM/VIT D 500MG/200 UNIT TABLET PO SCH (08:59)
[2018-12-04] MEDS: ACETAMINOPHEN 500 MG TABLET PO SCH ×2 (08:59→20:42)
[2018-12-04] MEDS: ENOXAPARIN SODIUM 30 MG/0.3 ML DISP.SYRIN SQ SCH (08:59)
[2018-12-04] MEDS: BUDESONIDE 0.5MG/2ML AMPUL.NEB NEB SCH ×2 (09:00→20:55)
[2018-12-04] MEDS: ALBUTEROL SULFATE 2.5 MG/3 ML AMPUL.NEB NEB SCH ×2 (09:06→20:55)
[2018-12-04 17:20] LABS: APPEARANCE,URINE CLEAR (CLEAR); COLOR,URINE YELLOW (YELLOW); OCCULT BLOOD,URINE NEGATIVE (NEGATIVE)
[2018-12-04] MEDS: ATORVASTATIN CALCIUM 20 MG TABLET PO SCH (20:41)
[2018-12-05] MEDS: ENOXAPARIN SODIUM 30 MG/0.3 ML DISP.SYRIN SQ SCH (08:37)
[2018-12-05] MEDS: PARoxetine HCL 10 MG TABLET PO SCH (08:37)
[2018-12-05] MEDS: SENNOSIDES/DOCUSATE 8.6/50 MG 1 EACH TABLET PO SCH ×2 (08:38→20:30)
[2018-12-05] MEDS: MIRABEGRON 25 MG PO SCH (08:38)
[2018-12-05] MEDS: LISINOPRIL 20 MG TABLET PO SCH (08:38)
[2018-12-05] MEDS: CALCIUM/VIT D 500MG/200 UNIT TABLET PO SCH (08:38)
[2018-12-05] MEDS: ACETAMINOPHEN 500 MG TABLET PO SCH ×2 (08:38→20:29)
[2018-12-05] MEDS: TAMSULOSIN HCL 0.4 MG CAP.ER.24H PO SCH (08:38)
[2018-12-05] MEDS: cloNIDine HCL 0.1 MG TABLET PO SCH ×2 (08:38→20:29)
[2018-12-05] MEDS: MULTIVITAMIN 1 EACH TABLET PO SCH (08:38)
[2018-12-05] MEDS: FINASTERIDE 5 MG TABLET PO SCH (08:39)
[2018-12-05] MEDS: ALBUTEROL SULFATE 2.5 MG/3 ML AMPUL.NEB NEB SCH ×2 (09:00→20:48)
[2018-12-05] MEDS: BUDESONIDE 0.5MG/2ML AMPUL.NEB NEB SCH ×2 (09:00→20:48)
[2018-12-05] MEDS: ATORVASTATIN CALCIUM 20 MG TABLET PO SCH (20:29)
[2018-12-06] MEDS: BUDESONIDE 0.5MG/2ML AMPUL.NEB NEB SCH ×2 (08:31→21:24)
[2018-12-06] MEDS: ALBUTEROL SULFATE 2.5 MG/3 ML AMPUL.NEB NEB SCH ×2 (08:33→21:26)
[2018-12-06] MEDS: cloNIDine HCL 0.1 MG TABLET PO SCH ×2 (09:09→21:23)
[2018-12-06] MEDS: CALCIUM/VIT D 500MG/200 UNIT TABLET PO SCH (09:09)
[2018-12-06] MEDS: LISINOPRIL 20 MG TABLET PO SCH (09:09)
[2018-12-06] MEDS: ENOXAPARIN SODIUM 30 MG/0.3 ML DISP.SYRIN SQ SCH (09:09)
[2018-12-06] MEDS: FINASTERIDE 5 MG TABLET PO SCH (09:09)
[2018-12-06] MEDS: MIRABEGRON 25 MG PO SCH (09:09)
[2018-12-06] MEDS: PARoxetine HCL 10 MG TABLET PO SCH (09:09)
[2018-12-06] MEDS: ACETAMINOPHEN 500 MG TABLET PO SCH ×2 (09:09→21:24)
[2018-12-06] MEDS: SENNOSIDES/DOCUSATE 8.6/50 MG 1 EACH TABLET PO SCH ×2 (09:10→21:24)
[2018-12-06] MEDS: MULTIVITAMIN 1 EACH TABLET PO SCH (09:10)
[2018-12-06] MEDS: TAMSULOSIN HCL 0.4 MG CAP.ER.24H PO SCH (09:10)
[2018-12-06] MEDS: ERGOCALCIFEROL (VITAMIN D2) 50,000 UNIT CAPSULE PO SCH (09:11)
[2018-12-06] MEDS ORDERED: PATIENT OWN MED 1 EACH EACH PO NR (10:00)
[2018-12-06] MEDS: ATORVASTATIN CALCIUM 20 MG TABLET PO SCH (21:24)
[2018-12-07] MEDS: MULTIVITAMIN 1 EACH TABLET PO SCH (09:08)
[2018-12-07] MEDS: ACETAMINOPHEN 500 MG TABLET PO SCH ×2 (09:08→20:00)
[2018-12-07] MEDS: SENNOSIDES/DOCUSATE 8.6/50 MG 1 EACH TABLET PO SCH ×2 (09:08→20:00)
[2018-12-07] MEDS: MIRABEGRON 25 MG PO SCH (09:08)
[2018-12-07] MEDS: cloNIDine HCL 0.1 MG TABLET PO SCH ×2 (09:08→20:00)
[2018-12-07] MEDS: FINASTERIDE 5 MG TABLET PO SCH (09:08)
[2018-12-07] MEDS: CALCIUM/VIT D 500MG/200 UNIT TABLET PO SCH (09:08)
[2018-12-07] MEDS: LISINOPRIL 20 MG TABLET PO SCH (09:08)
[2018-12-07] MEDS: PARoxetine HCL 10 MG TABLET PO SCH (09:08)
[2018-12-07] MEDS: TAMSULOSIN HCL 0.4 MG CAP.ER.24H PO SCH (09:08)
[2018-12-07] MEDS: BUDESONIDE 0.5MG/2ML AMPUL.NEB NEB SCH ×2 (10:26→22:24)
[2018-12-07] MEDS: ALBUTEROL SULFATE 2.5 MG/3 ML AMPUL.NEB NEB SCH ×2 (10:30→22:26)
[2018-12-07] MEDS: ENOXAPARIN SODIUM 30 MG/0.3 ML DISP.SYRIN SQ SCH (10:50)
[2018-12-07] MEDS: ATORVASTATIN CALCIUM 20 MG TABLET PO SCH (20:00)
[2018-12-08] MEDS: traMADol HCL 50 MG TABLET PO PRN (01:01)
[2018-12-08] MEDS: TAMSULOSIN HCL 0.4 MG CAP.ER.24H PO SCH (08:04)
[2018-12-08] MEDS: cloNIDine HCL 0.1 MG TABLET PO SCH ×2 (08:04→20:30)
[2018-12-08] MEDS: MIRABEGRON 25 MG PO SCH (08:05)
[2018-12-08] MEDS: LISINOPRIL 20 MG TABLET PO SCH (08:05)
[2018-12-08] MEDS: ENOXAPARIN SODIUM 30 MG/0.3 ML DISP.SYRIN SQ SCH (08:05)
[2018-12-08] MEDS: PARoxetine HCL 10 MG TABLET PO SCH (08:05)
[2018-12-08] MEDS: CALCIUM/VIT D 500MG/200 UNIT TABLET PO SCH (08:05)
[2018-12-08] MEDS: FINASTERIDE 5 MG TABLET PO SCH (08:05)
[2018-12-08] MEDS: SENNOSIDES/DOCUSATE 8.6/50 MG 1 EACH TABLET PO SCH ×2 (08:06→20:30)
[2018-12-08] MEDS: ACETAMINOPHEN 500 MG TABLET PO SCH ×2 (08:06→20:30)
[2018-12-08] MEDS: MULTIVITAMIN 1 EACH TABLET PO SCH (08:06)
[2018-12-08] MEDS: ALBUTEROL SULFATE 2.5 MG/3 ML AMPUL.NEB NEB SCH ×2 (09:00→20:30)
[2018-12-08] MEDS: BUDESONIDE 0.5MG/2ML AMPUL.NEB NEB SCH ×2 (09:00→20:30)
[2018-12-08] MEDS: ATORVASTATIN CALCIUM 20 MG TABLET PO SCH (20:30)
[2018-12-09] MEDS: BUDESONIDE 0.5MG/2ML AMPUL.NEB NEB SCH ×2 (09:00→20:54)
[2018-12-09] MEDS: ALBUTEROL SULFATE 2.5 MG/3 ML AMPUL.NEB NEB SCH ×2 (09:00→20:58)
[2018-12-09] MEDS: ACETAMINOPHEN 500 MG TABLET PO SCH ×2 (10:24→20:48)
[2018-12-09] MEDS: SENNOSIDES/DOCUSATE 8.6/50 MG 1 EACH TABLET PO SCH ×2 (10:24→20:48)
[2018-12-09] MEDS: FINASTERIDE 5 MG TABLET PO SCH (10:24)
[2018-12-09] MEDS: PARoxetine HCL 10 MG TABLET PO SCH (10:24)
[2018-12-09] MEDS: LISINOPRIL 20 MG TABLET PO SCH (10:25)
[2018-12-09] MEDS: ENOXAPARIN SODIUM 30 MG/0.3 ML DISP.SYRIN SQ SCH (10:25)
[2018-12-09] MEDS: MIRABEGRON 25 MG PO SCH (10:25)
[2018-12-09] MEDS: cloNIDine HCL 0.1 MG TABLET PO SCH ×2 (10:25→20:48)
[2018-12-09] MEDS: CALCIUM/VIT D 500MG/200 UNIT TABLET PO SCH (10:25)
[2018-12-09] MEDS: TAMSULOSIN HCL 0.4 MG CAP.ER.24H PO SCH (10:26)
[2018-12-09] MEDS: MULTIVITAMIN 1 EACH TABLET PO SCH (10:26)
[2018-12-09] MEDS: traMADol HCL 50 MG TABLET PO PRN (16:58)
[2018-12-09] MEDS: ATORVASTATIN CALCIUM 20 MG TABLET PO SCH (20:48)
[2018-12-10] MEDS: PARoxetine HCL 10 MG TABLET PO SCH (08:41)
[2018-12-10] MEDS: ENOXAPARIN SODIUM 30 MG/0.3 ML DISP.SYRIN SQ SCH (08:41)
[2018-12-10] MEDS: ACETAMINOPHEN 500 MG TABLET PO SCH ×2 (08:41→20:37)
[2018-12-10] MEDS: MIRABEGRON 25 MG PO SCH (08:41)
[2018-12-10] MEDS: CALCIUM/VIT D 500MG/200 UNIT TABLET PO SCH (08:42)
[2018-12-10] MEDS: TAMSULOSIN HCL 0.4 MG CAP.ER.24H PO SCH (08:42)
[2018-12-10] MEDS: SENNOSIDES/DOCUSATE 8.6/50 MG 1 EACH TABLET PO SCH ×2 (08:42→20:37)
[2018-12-10] MEDS: FINASTERIDE 5 MG TABLET PO SCH (08:42)
[2018-12-10] MEDS: MULTIVITAMIN 1 EACH TABLET PO SCH (08:42)
[2018-12-10] MEDS: cloNIDine HCL 0.1 MG TABLET PO SCH ×2 (08:42→20:37)
[2018-12-10] MEDS: LISINOPRIL 20 MG TABLET PO SCH (08:43)
[2018-12-10] MEDS: ALBUTEROL SULFATE 2.5 MG/3 ML AMPUL.NEB NEB SCH ×2 (08:45→20:43)
[2018-12-10] MEDS: BUDESONIDE 0.5MG/2ML AMPUL.NEB NEB SCH ×2 (08:50→20:41)
[2018-12-10] MEDS: ATORVASTATIN CALCIUM 20 MG TABLET PO SCH (20:37)
--- NOTE | 2018-12-11 08:28 | Discharge Summary ---
Discharge Summary - Discharge [facility] Admission Date: 11/22/18 (SNF) Discharge Date: 12/11/18 ([facility]) Discharge To: [facility] History of Present Illness: 78yo white male with a history of HTN, PVD, COPD, chronic anemia and CLL who developed some abd pain. On further observation patient was found to have a grade 2 splenic laceration, left acetabular fracture, and left sacraliliac joint fracture. Patient and his denies any trauma that they are aware of that may have precipitated/ caused his injuries. Patient subsequently underwent ORIF of the acetabular fracture. No spleen repair or repair to left sacraliliac joint. Patient was found to have a pelvic hematoma that remained stable and was not evacuated. Patient has been placed on nonweight bearing to the left leg for 4- 6weeks. Patient did have some increase blood pressure which was treated with his home medication. He was also started on clonidine. He did have some postop delirium which has cleared at this time. Patient was transferred to this institution for PT and OT to help with transferring. Patient states that his pain has been well controlled. He has had some diarrhea. Appetite has been fair. Condition at Discharge: Stable Home Medications: Ambulatory Orders Medication Instructions Recorded Acetaminophen [Pain Relief Extra 1,000 mg PO BID 11/22/18 Strength] Albuterol Sulfate [Ventolin HFN] 2.5 mg NEB Q6 PRN 11/22/18 Albuterol Sulfate [Ventolin HFN] 3 ml INH Q12 11/22/18 Bisacodyl 10 mg RC PRN PRN 11/22/18 Budesonide 0.5 mg IH Q12 11/22/18 Calcium Carbonate/Vitamin D3 1 each PO BID 11/22/18 [Calcium 600-Vit D3 400 Tablet] Clonidine 1 each TD WEEK 11/22/18 Ergocalciferol (Vitamin D2) 50,000 unit PO WEEK 11/22/18 [Vitamin D-2] Formoterol Fumarate [Perforomist] 20 mcg IH Q12 11/22/18 Multivitamin [One-Daily 1 each PO DAILY 11/22/18 Multi-Vitamin] Quinapril HCl 40 mg PO DAILY 11/22/18 Rosuvastatin Calcium 40 mg PO HS 11/22/18 Sennosides/Docusate Sodium 1 each PO BID 11/22/18 [Docusate Sodium-Senna Tablet] Tamsulosin HCl 0.4 mg PO DAILY 11/22/18 PARoxetine HCL [Paxil] 40 mg PO DAILY #30 tablet 12/11/18 Consultations this Visit: None Procedures this Visit: None Allergies/Adverse Reactions: Allergies Allergy/AdvReac Type Severity Reaction Status Date / Time Penicillins Allergy Unknown Rash Verified 11/22/18 15:52 cephalexin [From Keflex] AdvReac Rash Verified 11/22/18 15:52 Discharge Summary: Patient with initially started on physical and occupational therapy with nonweight bearing to his left lower extremity secondary to his acetabular fracture. Patient did well with participating with physical therapy. On the [place] review by the orthopedic doctor during his skilled stay patient was started on partial weight-bearing. He did have some difficulty in being able to ejection time much weight he was putting on his leg. However patient did participate well with physical and occupational therapy. patient appetite remains BMP in at the time of dismissal was felt that the patient could not be safely discharged home and being able to maintain partial weight-bearing on his leg. Patient was subsequently transferred to [facility] for further rehab services and jail care. - Final Diagnosis (1) Acetabular fracture Problems: Stable. Patient is partial weight-bearing of 20 pounds at the time of dismissal. (2) CLL (chronic lymphocytic leukemia) Problems: Stable (3) COPD (chronic obstructive pulmonary disease) Problems: Stable on home medications (4) Essential hypertension Problems: Stable on home medications (5) PVD (peripheral vascular disease) Problems: Stable
[2018-12-11] MEDS ORDERED: FLU VACC TS2019-20(65YR UP)/PF 180 MCG/0.5 ML SYRINGE IM ONE (09:00)
[2018-12-11] MEDS: PARoxetine HCL 10 MG TABLET PO SCH (09:48)
[2018-12-11] MEDS: ENOXAPARIN SODIUM 30 MG/0.3 ML DISP.SYRIN SQ SCH (09:49)
[2018-12-11] MEDS: ACETAMINOPHEN 500 MG TABLET PO SCH (09:49)
[2018-12-11] MEDS: TAMSULOSIN HCL 0.4 MG CAP.ER.24H PO SCH (09:49)
[2018-12-11] MEDS: MULTIVITAMIN 1 EACH TABLET PO SCH (09:49)
[2018-12-11] MEDS: cloNIDine HCL 0.1 MG TABLET PO SCH (09:49)
[2018-12-11] MEDS: LISINOPRIL 20 MG TABLET PO SCH (09:49)
[2018-12-11] MEDS: CALCIUM/VIT D 500MG/200 UNIT TABLET PO SCH (09:49)
[2018-12-11] MEDS: MIRABEGRON 25 MG PO SCH (09:49)
[2018-12-11] MEDS: SENNOSIDES/DOCUSATE 8.6/50 MG 1 EACH TABLET PO SCH (09:49)
[2018-12-11] MEDS: FINASTERIDE 5 MG TABLET PO SCH (09:49)
[2018-12-11] MEDS: ALBUTEROL SULFATE 2.5 MG/3 ML AMPUL.NEB NEB SCH (10:00)
[2018-12-11] MEDS: BUDESONIDE 0.5MG/2ML AMPUL.NEB NEB SCH (10:11)
[2018-12-11 11:40] VITALS: BP 157/97
== END 2018-12-11 10:42 | DRG 560 ==
LOC: SOUTH 14:35 → UNDOADMIN 15:39
PROVIDERS: ADMIT Family Medicine; ATTEND Family Medicine
DX: S32.402D Unspecified fracture of left acetabulum, subsequent encounter for fracture with routine healing (principal); C91.10 Chronic lymphocytic leukemia of B-cell type not having achieved remission; I10 Essential (primary) hypertension; I73.9 Peripheral vascular disease, unspecified; J44.9 Chronic obstructive pulmonary disease, unspecified; D63.0 Anemia in neoplastic disease; Z66 Do not resuscitate; I48.91 Unspecified atrial fibrillation; F03.90 Unspecified dementia, unspecified severity, without behavioral disturbance, psychotic disturbance, mood disturbance, and anxiety; M81.0 Age-related osteoporosis without current pathological fracture; N40.0 Benign prostatic hyperplasia without lower urinary tract symptoms; Z86.73 Personal history of transient ischemic attack (TIA), and cerebral infarction without residual deficits; Z96.642 Presence of left artificial hip joint; Z87.891 Personal history of nicotine dependence; Z88.1 Allergy status to other antibiotic agents; Z88.0 Allergy status to penicillin; Z79.899 Other long term (current) drug therapy; Z79.51 Long term (current) use of inhaled steroids; X58.XXXD Exposure to other specified factors, subsequent encounter
CPT/HCPCS: 71045; 74018; 74230; 80053; 81002; 85025; 94640; 94760; 99221; 99232; 99238; J1650; J7626

== ENCOUNTER 2019-01-16 10:00 | Outpatient (CLI) | payer MEDICARE, OTHER ==
--- NOTE | 2019-01-16 17:05 | Diagnostic Imaging Report ---
PATIENT MR#: [id number] PATIENT PATIENT NAME: RICHY MURILLO DATE OF : 1940 REFERRING PHYSICIAN: Herb Plummer EXAM DATE: 01/16/2019 ACCESSION NUMBER: [id number] EXAM DESCRIPTION: DEXA DUAL ENERGY X-RAY ABSORPTIOMETRY (DXA) A DXA scan was performed on January 16, 2019 using a [employer] densitometer. IMPRESSION: Based on BMD diagnosis is consistent with osteoporosis (based on WHO criteria). Fracture risk is high . Pharmacologic treatment is recommended. Follow-up bone densitometry recommended in 1 year to monitor response. INDICATION: Multiple prior fractures. Technical Quality: Diagnostic RESULTS: Lumbar Spine The BMD measured in the L1-L4 region is 0.807 g/cm2: T-score -3.1 1/3 Radius The BMD measured at the left one-third radius is 0.640 g/cm2: T-score -2.8 Read by: Dr. Felice Nuñez Transcribed by: Felice Nuñez Transcribed Date: 01/16/2019 5:04:10 PM Electronically signed by: Dr. Felice Nuñez Date signed: 01/16/2019 5:04:10 PM
== END 2019-01-16 10:10 ==
LOC: RAD 10:00
PROVIDERS: ATTEND Family Medicine
DX: M80.00XG Age-related osteoporosis with current pathological fracture, unspecified site, subsequent encounter for fracture with delayed healing (principal)
CPT/HCPCS: 77080